=== PATIENT | male | born 1990 | race Caucasian/White ===

== ENCOUNTER 2016-10-12 23:48 | Emergency (ER) | payer SELFPAY ==
--- NOTE | ~2016-10-12 | ER ---
PATIENT'S NAME: JEZ VALENTINO [facility] AGE: 26 Y [address] ROOM: [place] [id number] LOCATION: [facility] ADMIT DATE: 10/12/2016 ER/Outpatient Report DISCHARGE DATE: 10/13/2016 FAMILY PHYSICIAN: Terry Gallardo MD ATTENDING PHYSICIAN: Godwin Tabor CHIEF COMPLAINT: Left lower tooth pain. HISTORY OF PRESENT ILLNESS: The patient states that for the last week his left lower jaw has been painful. He denies any trouble with swallowing. He states the tooth broke off a long time ago, but has been getting worse lately. He has been trying over-the- counter remedies with no improvement. He denies any fevers or chills. He is only able to chew using the right side of his mouth. No other acute issues. He says he has a family history of "poor teeth." He denies any drug use. PAST MEDICAL HISTORY: Documented on the record and reviewed by me. SOCIAL HISTORY: Documented on the record and reviewed by me. MEDICATIONS: Documented on the record and reviewed by me. ALLERGIES: DOCUMENTED ON THE RECORD AND REVIEWED BY ME. REVIEW OF SYSTEMS: All systems were reviewed and negative except as noted in the HPI. PHYSICAL EXAMINATION: VITAL SIGNS: Blood pressure 186/92, pulse is 111, respiratory rate 16, temperature 98.8, SpO2 is 99% on room air. Pain is rated 10/10. GENERAL: Age-appropriate male, sitting upright on exam table, in no respiratory distress, in [id number] pain. HEENT: Normocephalic, atraumatic. Eyes are PERRL. Oropharynx is moist. No obvious mucosal abnormalities. The left lower molar is notable for a very large fracture with exposure of the tooth pulp. No particular swelling of the alveolar ridge. No adenopathy appreciated. No swelling of the floor of the mouth. The other teeth appear to be grossly unremarkable. NECK: Supple. Trachea is midline. CHEST: Even and unlabored respirations. HEART: Borderline tachycardic. PATIENT'S NAME: JEZ VALENTINO [facility] AGE: 26 Y [address] ROOM: [place] [id number] LOCATION: [facility] ADMIT DATE: 10/12/2016 ER/Outpatient Report DISCHARGE DATE: 10/13/2016 FAMILY PHYSICIAN: Terry Gallardo MD ATTENDING PHYSICIAN: Godwin Tabor EXTREMITIES: Warm and well perfused. ABDOMEN: Benign. LABORATORY DATA AND X-RAYS: None. IMPRESSION: Dental pain. EMERGENCY DEPARTMENT COURSE: The patient was seen and evaluated as above. It is unclear if he has a very bad dental caries or tooth fracture. Recommend continuation with Orajel, attempt to find dental amalgam. We will give him Dolores and penicillin for prophylaxis and pain management until he can find a dentist preferably this week for evaluation for possible tooth extraction. The patient understands. The presentation is not consistent with Reji's angina or other deep space infection. All questions were answered. The patient was discharged in good condition. GODWIN TABOR MD JH/modl /[id number] d: 10/13/16 0411 t: 10/15/16 0803, OUTPATIENT REPORT
== END 2016-10-13 00:05 | disposition disaster alternative care site (69) ==
LOC: GMED 23:48
DX: K08.89 Other specified disorders of teeth and supporting structures (principal)